=== PATIENT | male | born 1960 | race Caucasian/White ===

== ENCOUNTER 2019-01-17 17:56 | Emergency (ER) | payer BC ==
[2019-01-17] MEDS ORDERED: IBUPROFEN 400 MG TABLET PO ONE (18:02)
[2019-01-17] MEDS ORDERED: HYDROCODONE/APAP 7.5/325MG TABLET PO ONE (18:02)
--- NOTE | 2019-01-17 18:08 | Emergency Department Record ---
History of Present Illness - General Chief complaint: Extremity Problem Stated complaint: RT LEG PAIN Time Seen by Provider: 01/17/19 17:58 Source: Patient Mode of Arrival: Wheelchair Limitations: No limitations - History of Present Illness Initial comments: 58 yo male presents to ED for evaluation of pain to the right lateral/popliteal region that began this morning. Patient denies specific injury, but does report a lot of bending and lifting this morning while at work. Patient denies numbness, tingling, or lower extremity weakness symptoms, and patient denies previous DVT. Patient denies taking anything for pain prior to evaluation. MD Complaint: Extremity pain Onset/Timin -: Days(s) Location: Lower Leg -: Yes Myalgia Radiation: None Quality: Aching Consistency: Constant Improves with: Nothing Worsens with: Walking Associated Symptoms: Denies other symptoms - Related Data Home Medications Medication Instructions Recorded Confirmed Last Taken Losartan Potassium 100 mg PO DAILY 01/17/19 01/17/19 Unknown Tamsulosin HCl [Flomax] 0.4 mg PO DAILY 01/17/19 01/17/19 Unknown Allergies Allergy/AdvReac Type Severity Reaction Status Date / Time No Known Drug Allergies Allergy Verified 01/17/19 18:07 Review of Systems Constitutional: Denies: Chills, Fever, Malaise, Night sweats Eyes: Denies: Eye discharge, Eye pain ENT: Denies: Congestion, Ear pain, Epistaxis Respiratory: Denies: Cough, Dyspnea Cardiovascular: Denies: Chest pain, Dyspnea on exertion Endocrine: Denies: Fatigue, Heat or cold intolerance Gastrointestinal: Denies: Abdominal pain, Nausea, Vomiting Genitourinary: Denies: Incontinence, Retention Musculoskeletal: Reports: Myalgia. Denies: Arthralgia, Back pain, Joint swelling Skin: Denies: Bruising, Change in color Neurological: Denies: Abnormal gait, Confusion, Headache, Tingling, Tremors Psychiatric: Denies: Anxiety Hematological/Lymphatic: Denies: Anemia, Blood Clots Physical Exam - General General Appearance: Alert, Oriented x3, Cooperative, Moderate distress Limitations: No limitations - Head Head exam: Atraumatic, Normocephalic, Normal inspection Head exam detail: negative: Abrasion, Contusion, Rowe's sign, General tenderness, Hematoma, Laceration - Eye Eye exam: Normal appearance. negative: Conjunctival injection, Periorbital swelling, Periorbital tenderness, Scleral icterus - ENT Ear exam: negative: Auricular hematoma, Auricular trauma Nasal Exam: negative: Active bleeding, Discharge, Dried blood, Foreign body Mouth exam: negative: Drooling, Laceration, Muffled voice, Tongue elevation - Neck Neck exam: Normal inspection. negative: Meningismus, Tenderness - Respiratory Respiratory exam: Normal lung sounds bilaterally. negative: Respiratory distress, Rhonchi, Stridor, Wheezes - Cardiovascular Cardiovascular Exam: Regular rate, Normal rhythm, Normal heart sounds - GI/Abdominal GI/Abdominal exam: Soft. negative: Rebound, Rigid, Tenderness - Rectal Rectal exam: Deferred - exam: Deferred - Extremities Extremities exam: Tenderness, Other (TTP to the right lower extremity at the level of the popliteal fossa and lateral to the this region, no calf pain on examination, no edema present.). negative: Calf tenderness, Pedal edema - Back Back exam: Denies: CVA tenderness (R), CVA tenderness (L) - Neurological Neurological exam: Alert, Normal gait, Oriented X3 - Psychiatric Psychiatric exam: Normal affect, Normal mood - Skin Skin exam: Normal color. negative: Abrasion Type of lesion: negative: abrasion Course - Reevaluation(s) Reevaluation #1: 01/17/19 18:34 Was notified by radiology that the order was placed at 18:02, as a result, will try and initiate transfer to [facility] for US doppler of the lower extremity. Reevaluation #2: 01/17/19 18:52 Case was discussed with Dr. Martínez, will accept patient for US of the lower extremity. Patient appears stable for transfer by private vehicle with his at this time. Disposition Disposition: Transfer Clinical Impression: Lower extremity pain Qualifiers: Laterality: right Qualified Code(s): M79.604 - Pain in right leg Disposition: Acute Care Hospital Transfer Transfer To: [facility] Reason For Transfer: US evaluation of the lower extremity Accepting Physician: Tanya Time Discussed w/Accepting Physician: 18:53 Condition: (3) Guarded Forms: Patient Portal Access Time of Disposition: 18:53 Quality - Quality Measures Quality Measures: N/A - Blood Pressure Screening Does Patient Have Any of the Following: No Blood Pressure Classification: Hypertensive Reading Systolic Measurement: 163 Diastolic Measurement: 101 Screening for High Blood Pressure: < First Hypertensive BP, F/U Documented > [ [id number]] First Hypertensive Follow-up Interventions: Referral to alternative/primary care provider.
== END 2019-01-17 19:00 | disposition short-term general hospital (02) ==
LOC: ER 17:56
DX: M79.661 Pain in right lower leg (principal)
CPT/HCPCS: 99284